=== PATIENT | male | born 1940 | race Caucasian/White ===

== ENCOUNTER 2016-08-14 02:52 | Emergency (ER) | payer MEDICARE ==
[2016-08-14] MEDS ORDERED: LIDOCAINE 1% MDV 20 ML ONE (04:09)
== END 2016-08-14 06:56 | disposition home or self-care (01) ==
LOC: ER 02:52
DX: R55 Syncope and collapse (principal); S09.90XA Unspecified injury of head, initial encounter; W18.30XA Fall on same level, unspecified, initial encounter; Y93.89 Activity, other specified; S01.81XA Laceration without foreign body of other part of head, initial encounter; Z87.891 Personal history of nicotine dependence
CPT/HCPCS: 70450; 93005